=== PATIENT | male | born 1970 | race Caucasian/White ===

== ENCOUNTER 2018-11-25 16:00 | Outpatient (RCR) | payer BC, SELFPAY ==
[2018-11-16 11:07] VITALS: BP 138/88; PULSE 68; RESP 20; TEMP 37; BMI 32.5
--- NOTE | 2018-11-16 19:09 | HP.PCM_ITS ---
(1) Ulcer of right lower extremity Status: Chronic Current Visit: Yes Qualifiers: Non-pressure ulcer stage: limited to breakdown of skin Qualified Code(s): L97.911 - Non-pressure chronic ulcer of unspecified part of right lower leg limited to breakdown of skin Code(s): L97.919 - Non-pressure chronic ulcer of unspecified part of right lower leg with unspecified severity (2) Swelling of both lower extremities Status: Chronic Current Visit: Yes Code(s): M79.89 - Other specified soft tissue disorders (3) Stasis dermatitis of both legs Status: Chronic Current Visit: Yes Code(s): I87.2 - Venous insufficiency (chronic) (peripheral) History of Present Illness Date of Service: 11/16/18 Chief Complaint: Recurrent right lower extremity ulcerations. History of Wound: Mr. Cade is a 48-year-old who was referred to the wound center due to recurrent right lower extremity ulcerations. Typically occur or after progressive/worsening swelling of his right lower extremity. This is said to have been recurrent over the past year. Due to the nature of his job, he is on his feet a lot. Denies significant tenderness, chills, fever otherwise well Past Medical History Past Medical History: Chronic Problems Ulcer of right lower extremity (Chronic) Swelling of both lower extremities (Chronic) Stasis dermatitis of both legs (Chronic) Allergies/Adverse Reactions: Allergies No Known Allergies Allergy (Verified 11/16/18 11:28) Home Medications: Ambulatory Orders Medication Instructions Recorded Aspirin 81 mg PO DAILY 11/16/18 Atorvastatin Calcium 80 mg PO DAILY 11/16/18 Budesonide/Formoterol 160/4.5 2 puff INHALATION BID 11/16/18 [Symbicort 160/4.5 Mcg Inhaler (SP)] Lisinopril 5 mg PO DAILY 11/16/18 Metoprolol Tartrate 25 mg PO BID 11/16/18 Montelukast [Singulair] 10 mg PO DAILY 11/16/18 Nitroglycerin (INPATIENT USE) 0.4 mg SUBLINGUAL Q5M PRN 11/16/18 [Nitrostat] Ticagrelor [Brilinta] 90 mg PO BID 11/16/18 Tiotropium Jamul [Spiriva] 18 mcg IH DAILY 11/16/18 Smoking Status: Current every day smoker Review of Systems Constitutional: Denies: Anorexia, Chills, Fever Eyes: Denies: Blurred vision, Redness HEENT: Denies: Difficulty Hearing, Difficulty Swallowing Cardiovascular: Denies: Chest Pain, Chest Tightness Respiratory: Denies: Hemoptysis Gastrointestinal: Denies: Abdominal Pain, Hematemesis, Vomiting Genitourinary: Denies: Hematuria Skin: Denies: Jaundice - Physical Exam Vital Signs Temp Pulse Resp BP 98.6 F 68 20 H 138/88 H 11/16/18 11:07 11/16/18 11:07 11/16/18 11:07 11/16/18 11:07 General: Alert, Oriented x3, Cooperative, No apparent distress HEENT: Atraumatic, Normocephalic Oral: Moist Mucosa Neck: Supple Lungs: Clear to auscultation, Normal air movement Cardiovascular: Regular rate, Regular Rhythm, Normal S1, Normal S2 Abdomen: Non Tender, Obese Extremities: No cyanosis, Edema Skin: Ulcer/ Wound Wound Measurements and Assessment WC - Nurse 1 - General Ulcer Measurement Start: 11/16/18 11:06 Freq: Status: Active Protocol: Activity Type Activity Date Activity User E-Sign Co-Sign Detail Recorded Client Recorded Date Recorded By Document 11/16/18 11:07 [facility] [id number] 11/16/18 11:26 [facility] 11/16/18 11:07 Wound Center Nurse 1 [Ulcer Assessment] #1- RLE CLUSTER -Combined with other wound No -Current Size (cm) - Length 26 -Current Size (cm) - Width 20.3 -Current Size (cm) - Depth 0.1 -Total Square Cm 527.8 -Date of Last Picture (Recall this 11/16/18 field) -Photo Taken Yes -Epithelialization None Present -Tunneling No -Undermining/Tunneling No -Circular Undermining No -Classification - Thickness Partial Thickness -Exudate Amt None Present -Wound Margin Flat & Intact -Granulation Amt Small (1-33%) -Granulation Quality Red -Slough/Fibrin Yes -Necrosis Amt Medium (34-66%) -Necrotic Tissue Type Adherent Slough -Texture (Vicki-wound Skin Appearance) Assessed, Scarring -Moisture (Vicki-wound Skin Appearance Assessed,Dry/ ) Scaly -Color (Vicki-wound Skin Appearance) Assessed, Erythema -Temperature (Vicki-wound Skin No Abnormality Appearance) (Pt Warm) -Tenderness on Palpation (Vicki-wound Yes Skin Appearance) -Ulcer Cleansing SOAP AND WATER -Foul Odor after Cleansing No -Anesthetic Used 4% Lidocaine Solution [Edema Assessment] -Lower Limb Edema Present Yes -Right Calf (cm) 40 -Right Ankle (cm) 26 -Left Calf (cm) 39.9 -Left Ankle (cm) 23.6 JORGE A - Nurse 2 - General Ulcer CM Notes Start: 11/16/18 11:06 Freq: Status: Active Protocol: Activity Type Activity Date Activity User E-Sign Co-Sign Detail Recorded Client Recorded Date Recorded By Document 11/16/18 11:50 MW [id number] 11/16/18 11:56 MW 11/16/18 11:50 Wound Center Nurse 2 [Procedure/Treatment] #1- RLE CLUSTER -Time 11:50 -Correct Patient Yes -Correct Side, Site, Position Yes -Correct Procedure Yes -Procedure Performed No -Wound/Ulcer Outcome Not Healed -Ulcer Cleansing Not Cleansed -Foul Odor after Cleansing No -Bleeding Controlled with NA -Offloading No -Treatment Response Procedure Tolerated Well [See Physician Procedure note for Specifics] Pain Scale: 0-10 Numeric [Pain] -Is Patient Pain Free? Yes Musculoskeletal: No Muscle Wasting Neurological: Cranial nerves II-XII grossly intact Psych/Mental Status: Normal Affect Debridement Note Post-Debridement Measurements/Treatment JORGE A - Nurse 2 - General Ulcer CM Notes Start: 11/16/18 11:06 Freq: Status: Active Protocol: Activity Type Activity Date Activity User E-Sign Co-Sign Detail Recorded Client Recorded Date Recorded By Document 11/16/18 11:50 MW [id number] 11/16/18 11:56 MW 11/16/18 11:50 Wound Center Nurse 2 #1- RLE CLUSTER -Time 11:50 -Correct Patient Yes -Correct Side, Site, Position Yes -Correct Procedure Yes -Procedure Performed No -Wound/Ulcer Outcome Not Healed -Ulcer Cleansing Not Cleansed -Foul Odor after Cleansing No -Bleeding Controlled with NA -Offloading No -Treatment Response Procedure Tolerated Well Pain Scale: 0-10 Numeric Is Patient Pain Free? Yes No debridement was completed today Assessment/Plan Active Problems Ulcer of right lower extremity (Chronic) Swelling of both lower extremities (Chronic) Stasis dermatitis of both legs (Chronic) Assessment: Same as above Plan: Tiny clusters of superficial ulceration/stasis dermatitis. No debridement completed today. Bilateral lower extremity swelling. Lengthy discussion with patient on recurrent lower extremity swelling and risk for recurrent ulcerations. Compression strongly recommended. For now, Xeroform with gauze over top and 3M wrap. Follow-up on Wednesday for nurse visit/change in 1 week with me. He was advised to elevate his lower extremities, exercise, avoid idle standing and also weight loss recommended. His questions were answered and he was advised to call with any further questions or concerns. This note was generated with [employer] dictation software. It may contain incorrect words, spelling, and punctuation that were not noted in checking the note before signing.
[2018-11-18 15:37] VITALS: BP 132/77; PULSE 75; RESP 20; TEMP 37; BMI 32.5
[2018-11-23 10:18] VITALS: BP 127/76; PULSE 77; RESP 18; TEMP 36.3; BMI 32.5
--- NOTE | 2018-11-23 10:49 | PCM.WC.PN ---
(1) Ulcer of right lower extremity Status: Chronic Current Visit: Yes Qualifiers: Non-pressure ulcer stage: limited to breakdown of skin Qualified Code(s): L97.911 - Non-pressure chronic ulcer of unspecified part of right lower leg limited to breakdown of skin Code(s): L97.919 - Non-pressure chronic ulcer of unspecified part of right lower leg with unspecified severity (2) Swelling of both lower extremities Status: Chronic Current Visit: Yes Code(s): M79.89 - Other specified soft tissue disorders (3) Stasis dermatitis of both legs Status: Chronic Current Visit: Yes Code(s): I87.2 - Venous insufficiency (chronic) (peripheral) Type of Wound Date of Service: 11/23/18 Chief Complaint: Recurrent right lower extremity ulcerations. History of Wound: Mr. Cade is a 48-year-old who was referred to the wound center due to recurrent right lower extremity ulcerations. Typically occur or after progressive/worsening swelling of his right lower extremity. This is said to have been recurrent over the past year. Due to the nature of his job, he is on his feet a lot. Denies significant tenderness, chills, fever otherwise well Progress of Wound: New left medial ulcer similar to right leg cluster. Patient reports pain and burning. No history of trauma. Tolerated 3M wraps without concern. - Physical Exam Vital Signs Temp Pulse Resp BP 97.3 F L 77 18 127/76 H 11/23/18 10:18 11/23/18 10:18 11/23/18 10:18 11/23/18 10:18 General: Alert, Oriented x3, Cooperative, No apparent distress HEENT: Atraumatic, Normocephalic Oral: Moist Mucosa Neck: Supple Lungs: Normal air movement Extremities: No cyanosis Skin: Ulcer/ Wound Wound Measurements and Assessment WC - Nurse 1 - General Ulcer Measurement Start: 11/16/18 11:06 Freq: Status: Active Protocol: Activity Type Activity Date Activity User E-Sign Co-Sign Detail Recorded Client Recorded Date Recorded By Document 11/23/18 10:18 RB [id number] 11/23/18 10:25 RB 11/23/18 10:18 Wound Center Nurse 1 [Ulcer Assessment] #1- RLE CLUSTER -Combined with other wound No -Current Size (cm) - Length 0.1 -Current Size (cm) - Width 0.1 -Current Size (cm) - Depth 0.1 -Total Square Cm 0.01 -Tunneling No -Undermining/Tunneling No -Circular Undermining No -Exudate Amt None Present -Wound Margin Distinct, Outline Attached -Granulation Amt Medium (34-66%) -Granulation Quality [place] -Slough/Fibrin Yes -Necrosis Amt Medium (34-66%) -Necrotic Tissue Type Adherent Slough -Structure Exposed N/A -Texture (Vicki-wound Skin Appearance) Assessed -Moisture (Vicki-wound Skin Appearance Assessed ) -Color (Vicki-wound Skin Appearance) Assessed -Temperature (Vicki-wound Skin No Abnormality Appearance) (Pt Warm) -Tenderness on Palpation (Vicki-wound No Skin Appearance) -Foul Odor after Cleansing Yes -Anesthetic Used 4% Lidocaine Solution [Edema Assessment] -Lower Limb Edema Present Yes -Right Calf (cm) 40.5 -Right Ankle (cm) 26.5 -Left Calf (cm) 40 -Left Ankle (cm) 23.2 Musculoskeletal: No Muscle Wasting Neurological: Cranial nerves II-XII grossly intact Psych/Mental Status: Normal Affect Debridement Note Post-Debridement Measurements/Treatment WC - Nurse 2 - General Ulcer CM Notes Start: 11/16/18 11:06 Freq: Status: Active Protocol: Activity Type Activity Date Activity User E-Sign Co-Sign Detail Recorded Client Recorded Date Recorded By Document 11/16/18 11:50 MW [id number] 11/16/18 11:56 MW 11/16/18 11:50 Wound Center Nurse 2 #1- RLE CLUSTER -Time 11:50 -Correct Patient Yes -Correct Side, Site, Position Yes -Correct Procedure Yes -Procedure Performed No -Wound/Ulcer Outcome Not Healed -Ulcer Cleansing Not Cleansed -Foul Odor after Cleansing No -Bleeding Controlled with NA -Offloading No -Treatment Response Procedure Tolerated Well Pain Scale: 0-10 Numeric Is Patient Pain Free? Yes No debridement was completed today Assessment/Plan Active Problems Ulcer of right lower extremity (Chronic) Swelling of both lower extremities (Chronic) Stasis dermatitis of both legs (Chronic) Assessment: Same as above Plan: Tiny clusters of superficial ulceration/stasis dermatitis/ Petechae. No debridement completed today. Bilateral lower extremity swelling has improved however, as stated above, new left medial rash. ? Cryoglobulinemia/Vasculitis. Prescription for Medrol dose edie given. Reasses response next week. Continue Xeroform with gauze over top and 3M wrap. Follow-up on Wednesday for nurse visit/change. He was advised to elevate his lower extremities, exercise, avoid idle standing and also weight loss recommended. His questions were answered and he was advised to call with any further questions or concerns. He was also referred to Derm for further work up/possible biopsy. Follow up in 1 week. This note was generated with [employer] dictation software. It may contain incorrect words, spelling, and punctuation that were not noted in checking the note before signing.
--- NOTE | 2018-11-25 13:53 | VDLE_ITS ---
Reason For Study: Edema RIGHT LEFT CFV is compressible, spontaneous, phasic, CFV is compressible, spontaneous, phasic, competent and demonstrates normal competent, and demonstrates normal augmentation. augmentation. FV is compressible, spontaneous, phasic, FV is compressible, spontaneous, phasic, competent and demonstrates normal competent and demonstrates normal augmentation. augmentation. POP V is compressible, spontaneous, phasic, POP V is compressible, spontaneous, phasic, competent and demonstrates normal competent and demonstrates normal augmentation. augmentation. T/P Trunk is compressible. T/P Trunk is compressible. PTV is compressible. PTV is compressible. RT PerV is compressible. LT PerV is compressible. SFJ is competent and measures 0.75 x 0.86 cm. SFJ is competent and measures 0.62 x 0.65 cm. GSV proximal thigh measures 0.58 x 0.64 cm. GSV proximal thigh measures 0.32 x 0.39 cm. GSV at knee measures 0.18 x 0.20 cm. GSV at knee measures 0.38 x 0.39 cm. GSV is competent throughout. GSV INCOMPETENT throughout for greater than SSV proximal calf is competent and measures 0.5 seconds. 0.23 x 0.25 cm. ASV proximal thigh is INCOMPETENT for greater Procedure than 0.5 seconds and measures 0.31 x 0.33 cm. Exam performed in department. SSV proximal calf is competent and measures A preliminary report was called and/or faxed 0.31 x 0.34 cm. to WC. Interpretation Summary Deep veins of the lower extremities are bilaterally patent and compressible segmentally. There is no evidence of deep vein thrombosis on either side. Valvular competence appears intact within the proximal deep venous systems bilaterally. The great saphenous veins appear bilaterally patent and compressible segmentally. Sapheno-femoral junctions are bilaterally competent . The right great saphenous vein appears segmentally competent. The left great saphenous vein appears segmentally incompetent. Small saphenous veins are patent and competent bilaterally. An accessory saphenous vein in the left proximal thigh is incompetent. Ordering Physician: Sebastián Horta Referring Physician: Nasreen Marin Performed By: Nasreen Montiel RVT
--- NOTE | 2018-11-25 13:54 | ART_ITS ---
Reason For Study: PAD Procedure A bilateral lower extremity continuous wave Doppler with analog waveform analysis,segmental pressures,and ankle brachial indexes without exercise. Left Segmental Pressures Left brachial= 131mmHg. Left posterior tibial artery = 160mmHg. Left dorsalis pedis artery = 168mmHg. Left digit = 129 mmHg. The left dorsalis pedis waveforms are triphasic. The left posterior tibial artery waveforms are triphasic. Right Segmental Pressures Right brachial= 129mmHg. Right posterior tibial artery = 145mmHg. Right dorsalis pedis artery = 153mmHg. Right digit = 117 mmHg. The right dorsalis pedis waveforms are triphasic. The right posterior tibial artery waveforms are triphasic. Indices The right ankle brachial index by the dorsalis pedis is 1.17. The right ankle brachial index by the posterior tibial artery is 1.11. The right digital-brachial index is 0.89. The left ankle brachial index by the dorsalis pedis is 1.28. The left ankle brachial index by the posterior tibial artery is 1.28. The left digital-brachial index is 0.98. Interpretation Summary Triphasic Doppler waveforms are noted at ankle level bilaterally. Pulse-volume recordings are normal bilaterally. Resting ankle-brachial indices are normal bilaterally. Digital-brachial indices are normal bilaterally. There is no evidence of significant arterial occlusive disease in the lower extremities bilaterally. Ordering Physician: Sebastián Horta Referring Physician: Nasreen Marin Performed By: Nasreen Montiel RVT
[2018-11-25 16:02] VITALS: BP 142/91; PULSE 82; RESP 18; TEMP 37.3; BMI 32.5
== END 2018-11-26 23:59 ==
LOC: WC 16:00
PROVIDERS: Family Provider Nurse Practitioner Family; PCP Nurse Practitioner Family; Visit Provider Internal Medicine
DX: I87.2 Venous insufficiency (chronic) (peripheral) (principal); I73.9 Peripheral vascular disease, unspecified; R60.0 Localized edema; M79.89 Other specified soft tissue disorders; L97.811 Non-pressure chronic ulcer of other part of right lower leg limited to breakdown of skin; F17.200 Nicotine dependence, unspecified, uncomplicated; Z79.899 Other long term (current) drug therapy; Z79.51 Long term (current) use of inhaled steroids; Z79.82 Long term (current) use of aspirin
CPT/HCPCS: 29581; 93923; 93970; 99203; 99213; G0463

== ENCOUNTER 2018-12-01 11:18 | Outpatient (RCR) | payer BC, SELFPAY ==
[2018-11-27 01:14] VITALS: BP 142/91; PULSE 82; RESP 18; TEMP 37.3
[2018-12-01 13:46] VITALS: BP 140/75; PULSE 98; RESP 16; TEMP 36.5; BMI 32.5
--- NOTE | 2018-12-01 19:28 | PN.PCM_ITS ---
(1) Stasis dermatitis of both legs Status: Chronic Code(s): I87.2 - Venous insufficiency (chronic) (peripheral) (2) Swelling of both lower extremities Status: Chronic Code(s): M79.89 - Other specified soft tissue disorders (3) Ulcer of right lower extremity Status: Chronic Qualifiers: Code(s): L97.919 - Non-pressure chronic ulcer of unspecified part of right lower leg with unspecified severity Type of Wound Date of Service: 12/07/18 Chief Complaint: Recurrent right lower extremity ulcerations. History of Wound: Mr. Cade is a 48-year-old who was referred to the wound center due to recurrent right lower extremity ulcerations. Typically occur or after progressive/worsening swelling of his right lower extremity. This is said to have been recurrent over the past year. Due to the nature of his job, he is on his feet a lot. Denies significant tenderness, chills, fever otherwise well Progress of Wound: Tolerated steroids really well. Bilateral lower extremity rash/ulceration/swelling have all improved. No new concerns at this time. - Physical Exam Vital Signs Temp Pulse Resp BP 97.7 F L 98 16 140/75 H 12/01/18 13:46 12/01/18 13:46 12/01/18 13:46 12/01/18 13:46 General: Alert, Oriented x3, Cooperative, No apparent distress HEENT: Atraumatic, Normocephalic Oral: Moist Mucosa Neck: Supple Lungs: Normal air movement Cardiovascular: Regular rate Extremities: No cyanosis Wound Measurements and Assessment WC - Nurse 1 - General Ulcer Measurement Start: 12/01/18 13:46 Freq: Status: Active Protocol: Activity Type Activity Date Activity User E-Sign Co-Sign Detail Recorded Client Recorded Date Recorded By Document 12/01/18 13:46 [id number] 12/01/18 13:53 12/01/18 13:46 Wound Center Nurse 1 [Ulcer Assessment] #2 LEFT MEDIAL ANKLE -Combined with other wound No #1- RLE CLUSTER -Combined with other wound No -Photo Taken No -Tunneling No -Undermining/Tunneling No -Circular Undermining No -Classification - Thickness Partial Thickness -Change in Wound Grade/Stage No Query Text:If change please identify the Stage/Grade in the comment (ie. S2 G3) -Exudate Amt Small -Exudate Type Serous -Wound Margin Flat & Intact -Granulation Amt None Present (0 %) -Granulation Quality N/A -Slough/Fibrin No -Necrosis Amt None Present (0 %) -Structure Exposed None/Limited to Skin Breakdown -Texture (Vicki-wound Skin Appearance) Excoriation -Moisture (Vicki-wound Skin Appearance Assessed,Dry/ ) Scaly -Color (Vicki-wound Skin Appearance) Assessed, Erythema -Temperature (Vicki-wound Skin No Abnormality Appearance) (Pt Warm) -Tenderness on Palpation (Vicki-wound No Skin Appearance) -Foul Odor after Cleansing No [Edema Assessment] -Lower Limb Edema Present Yes -Right Calf (cm) 36.5 -Right Ankle (cm) 24 -Left Calf (cm) 38 -Left Ankle (cm) 23.5 WC - Nurse 2 - General Ulcer CM Notes Start: 12/01/18 13:46 Freq: Status: Active Protocol: Activity Type Activity Date Activity User E-Sign Co-Sign Detail Recorded Client Recorded Date Recorded By Document 12/01/18 13:56 MW [id number] 12/01/18 14:02 MW 12/01/18 13:56 Wound Center Nurse 2 [Procedure/Treatment] #2 LEFT MEDIAL ANKLE -Time 13:56 -Correct Patient Yes -Correct Side, Site, Position Yes -Correct Procedure Yes -Procedure Performed No -Wound/Ulcer Outcome Not Healed -Ulcer Cleansing Not Cleansed -Foul Odor after Cleansing No -Bleeding Controlled with NA -Offloading No -Treatment Response Procedure Tolerated Well #1- RLE CLUSTER -Time 13:56 -Correct Patient Yes -Correct Side, Site, Position Yes -Correct Procedure Yes -Procedure Performed No -Wound/Ulcer Outcome Not Healed -Ulcer Cleansing Rinsed/ Irrigated with Saline -Foul Odor after Cleansing No -Bioengineered Tissue No -Bleeding Controlled with Pressure -Offloading No -Treatment Response Procedure Tolerated Well [See Physician Procedure note for Specifics] Pain Scale: 0-10 Numeric [Pain] -Is Patient Pain Free? Yes Musculoskeletal: No Muscle Wasting Neurological: Cranial nerves II-XII grossly intact Psych/Mental Status: Normal Affect Debridement Note Post-Debridement Measurements/Treatment WC - Nurse 2 - General Ulcer CM Notes Start: 12/01/18 13:46 Freq: Status: Active Protocol: Activity Type Activity Date Activity User E-Sign Co-Sign Detail Recorded Client Recorded Date Recorded By Document 12/01/18 13:56 MW [id number] 12/01/18 14:02 MW 12/01/18 13:56 Wound Center Nurse 2 #2 LEFT MEDIAL ANKLE -Time 13:56 -Correct Patient Yes -Correct Side, Site, Position Yes -Correct Procedure Yes -Procedure Performed No -Wound/Ulcer Outcome Not Healed -Ulcer Cleansing Not Cleansed -Foul Odor after Cleansing No -Bleeding Controlled with NA -Offloading No -Treatment Response Procedure Tolerated Well #1- RLE CLUSTER -Time 13:56 -Correct Patient Yes -Correct Side, Site, Position Yes -Correct Procedure Yes -Procedure Performed No -Wound/Ulcer Outcome Not Healed -Ulcer Cleansing Rinsed/ Irrigated with Saline -Foul Odor after Cleansing No -Bioengineered Tissue No -Bleeding Controlled with Pressure -Offloading No -Treatment Response Procedure Tolerated Well Pain Scale: 0-10 Numeric Is Patient Pain Free? Yes No debridement was completed today Assessment/Plan Assessment: Same as above Plan: Significant improvement noted in the past week. Had been given a prescription for Medrol Dosepak. Appears to have done really well on this. Swelling, rash have all resolved. No indication for debridement at this time. Denies burning or pain. ??? Dermatitis vs Cryoglobulinemia/Vasculitis. Advised to follow-up with dermatology previously discussed. Continue compression stockings for venous insufficiency. Arterial and venous studies reviewed. He was advised to elevate his lower extremities, exercise, avoid idle standing and also weight loss recommended. His questions were answered and he was advised to call with any further questions or concerns. Currently has no open wounds/ulcers. Discharged from the wound center. This note was generated with [email or web address] dictation software. It may contain incorrect words, spelling, and punctuation that were not noted in checking the note before signing.
== END 2018-12-26 23:59 ==
LOC: WC 11:18
PROVIDERS: Family Provider Nurse Practitioner Family; PCP Nurse Practitioner Family; Visit Provider Internal Medicine
DX: Z09 Encounter for follow-up examination after completed treatment for conditions other than malignant neoplasm (principal); I87.2 Venous insufficiency (chronic) (peripheral); M79.89 Other specified soft tissue disorders
CPT/HCPCS: 99213; G0463